=== PATIENT | male | born 1985 | race Caucasian/White ===

== ENCOUNTER 2019-04-12 23:40 | Emergency (ER) | payer OTHER ==
[~2019-04-12] VITALS: Ht 180.3 cm; Wt 89.3 kg
[2019-04-13 00:28] VITALS: BP 151/110
== END 2019-04-13 00:28 | disposition home or self-care (01) ==
LOC: ER 23:40
DX: S51.001A Unspecified open wound of right elbow, initial encounter (principal); Y08.89XA Assault by other specified means, initial encounter; Y93.89 Activity, other specified; Y92.89 Other specified places as the place of occurrence of the external cause; Y99.8 Other external cause status